=== PATIENT | male | born 1970 | race Caucasian/White ===

== ENCOUNTER 2017-08-25 15:55 | Inpatient (IN) ==
--- NOTE | 2017-08-25 16:06 | Emergency Department Note ---
Disposition Clinical Impression: BARNEY (acute kidney injury) Pneumonia Qualifiers: Pneumonia type: due to unspecified organism Laterality: right Lung location: middle lobe of lung Qualified Code(s): J18.1 - Lobar pneumonia, unspecified organism Disposition: Admitted As Inpatient Condition: Fair General Adult HPI - General Chief complaint: ED Urogenital-Male Stated complaint: dysuria, neck/back pain Nursing Notes Reviewed: Yes Vital Signs Reviewed: Yes - History of Present Illness HPI Narrative: 47-year-old male presents emergency department with concern for not urinating for the last 3 days. Patient states that is ever had issues with this before. Patient denies any history of benign prostatic hypertrophy. Patient denies any abdominal pain. He does report having a few episodes of diarrhea with some nausea. No nausea vomiting today though however. He did vomit 2 days ago and states he hurt his neck. He states that he feels as if he pulled a muscle on the left side of his neck. Patient does report history of chronic kidney disease. States that he has follow-up with nephrology in September. Denies any fevers or chills. Denies any urgency or blood in the urine. Pain Scale: 8 - Related Data Allergies Allergy/AdvReac Type Severity Reaction Status Date / Time No Known Allergies Allergy Verified 08/25/17 16:33 All systems ED: reviewed and negative except as stated. Review of Systems: As Per HPI Constitutional: Denies: fever Gastrointestinal: Reports: nausea, vomiting. Denies: abdominal pain Genitourinary: Reports: frequency (Decreased). Denies: urgency, dysuria, testicular pain Musculoskeletal: Reports: back pain (Chronic), neck pain (Acute) Integumentary: Denies: rash Neurological: Denies: weakness Psychiatric: Reports: depression Physical Exam - General General appearance: alert, in no apparent distress - Head Head exam: atraumatic, normocephalic - Eye Eye exam: Present: EOMI. Absent: scleral icterus - ENT ENT exam: normal exam, normal oropharynx - Neck Neck exam: Present: trachea midline - Chest Chest inspection: Present: normal inspection, symmetric chest wall rise - Respiratory Respiratory exam: Present: normal lung sounds bilaterally. Absent: respiratory distress, wheezes, stridor - Cardiovascular Cardiovascular exam: Present: regular rate, normal rhythm, normal heart sounds - Abdominal Exam Abdominal exam: Present: Non-Tender, distention (Mild). Absent: guarding, rebound, rigidity - Extremities Exam Extremities exam: Present: normal capillary refill - Back Exam Back exam: Present: normal inspection - Neurological Exam Neurological exam: Present: alert, oriented X3 - Psychiatric Psychiatric exam: Present: normal affect, normal mood - Skin Skin exam: Present: warm, dry, intact, normal color Course Vital Signs Temperature 98.8 F 08/25/17 15:56 Pulse Rate 92 08/25/17 15:56 Respiratory Rate 17 08/25/17 15:56 Blood Pressure 102/67 08/25/17 15:56 O2 Sat by Pulse Oximetry 95 08/25/17 15:56 Temperature 97.6 F 08/25/17 20:19 Pulse Rate 79 08/25/17 20:19 Respiratory Rate 17 08/25/17 20:19 Blood Pressure 96/65 08/25/17 20:19 O2 Sat by Pulse Oximetry 96 08/25/17 20:19 Oxygen Delivery Oxygen Delivery Room Air Medical Decision Making - MDM Narrative Medical decision making narrative: 47-year-old male presents emergency department with concern for nausea, vomiting , diarrhea, anuresis over the last 3 days. Renal function revealed a creatinine of 5.76. Obtained a chest x-ray as well as CT scan of abdomen and pelvis. CT scan of abdomen and pelvis revealed a mildly enlarged prostate. However, there was noted opacities in the right middle lobe of the lung concerning for pneumonia. Chest x-ray reveals right basilar opacity. Patient does have a leukocytosis of 19,000. Patient afebrile here. However, with acute kidney injury, leukocytosis, and possible right middle lobe pneumonia, patient qualifies for severe sepsis. We have given patient 3 L of fluid here in the emergency department. We obtained fraction excretion of sodium and this is 0.4%, which would indicate a prerenal etiology to the patient's acute kidney injury. We have given Rocephin and azithromycin as well. Patient was admitted to the hospitalist. Dr. Joy agreed to accept the patient. Patient was a agreeable with plan. Also spoke with Dr. Jacobson who agreed to follow the patient. Abdomen/Pelvis CT 08/25/17 17:08 IMPRESSION: 1. No acute process in the abdomen or pelvis. No renal calculi are visualized. 2. Mildly enlarged prostate. 3. Clustered sub solid nodular opacities in the right middle lobe, with a trace right pleural effusion, concerning for pneumonia. D/ / 08/25/2017 17:48:40 Mina Kidd MD / nava Interpreting Provider: Mina Kidd MD Chest X-Ray 08/25/17 17:09 IMPRESSION: Patchy right basilar opacity which may reflect atelectasis. No overt edema. D/ / Sri Riggs MD / Sri Riggs MD Interpreting Provider: Sri Riggs MD - Lab Data Result diagrams: 08/25/17 16:25 08/25/17 16:25 Lab Results 08/25/17 08/25/17 08/25/17 Range/Units 16:25 16:25 17:11 WBC 19.7 H (4.3-11.1) K/mcL RBC 3.77 L (4.19-5.50) M/mcL Hgb 11.5 L (12.9-16.9) g/dL Hct 33.3 L (37.5-50.1) % MCV 88.3 (83.0-100.0) fL MCH 30.5 (28.0-33.3) pg MCHC 34.5 (31.6-35.5) g/dL RDW 14.2 (11.5-14.5) % Plt Count 249 (140-400) K/mcL MPV 9.5 (9.4-12.4) fL Immature Gran % 2.8 (0-4) % Seg Neutrophils % 62.9 % Lymphocytes % 12.1 % Monocytes % 6.7 % Eosinophils % 15.3 % Basophils % 0.2 % Neutrophils # 12.4 H (1.6-8.9) K/mcL Lymphocytes # 2.4 (0.6-4.6) K/mcL Monocytes # 1.3 (0.0-1.3) K/mcL Eosinophils # 3.0 H (0.0-0.6) K/mcL Basophils # 0.0 (0.0-0.2) K/mcL Platelet Estimate Normal (Normal) Sodium 134 L (136-145) mEq/L Potassium 4.7 (3.5-5.1) mEq/L Chloride 104 (98-107) mEq/L Carbon Dioxide 20 L (23-29) mEq/L BUN 58 H (6-20) mg/dL Creatinine 5.76 H (0.70-1.30) mg/dL Est GFR ( Amer) 13 L (> 60) Est GFR (Non-Af Amer) 11 L (> 60) BUN/Creatinine Ratio 10 (6-26) Glucose 122 H (70-105) mg/dL Calculated Osmolality 295 (280-300) Lactic Acid (0.5-2.2) mmol/L Calcium 9.1 (8.6-10.3) mg/dL Total Bilirubin 0.3 (0.3-1.0) mg/dL AST 8 L (13-39) Units/L ALT 11 (7-52) Units/L Alkaline Phosphatase 92 (34-104) Units/L Troponin I < 0.03 (< 0.04) ng/mL Serum Total Protein 6.9 (6.4-8.9) g/dL Albumin 4.2 (3.5-5.7) g/dL Globulin 2.7 (2.4-3.5) g/dL Albumin/Globulin Ratio 1.6 (1.1-2.2) Lipase 11 (11-82) Units/L Urine Color Yellow (Yellow) Urine Clarity Cloudy A (Clear) Urine pH 5.0 (5.0-8.0) pH Units Ur Specific [place] 1.022 (1.010-1.025) Urine Protein Negative (Neg-Trace) mg/dL Urine Glucose (UA) Normal (Normal) mg/dL Urine Ketones Negative (Negative) mg/dL Urine Blood Small H (Negative) Urine Nitrite Negative (Negative) Urine Bilirubin Small H (Negative) Urine Urobilinogen Normal (Normal) mg/dL Ur Leukocyte Esterase Negative (Negative) Urine Microscopic RBC 0-3 (0-3) per hpf Urine Microscopic WBC 0-3 (0-3) per hpf Ur Squamous Epith Cells Many H (None-Few) per lpf Amorphous Sediment Moderate H (Few) Urine Bacteria None Seen (None-Few) per hpf Hyaline Casts Test Not Performed Ur Culture Indicated? NO (NO) Urine Creatinine mg/dL Urine Sodium mEq/L 08/25/17 08/25/17 Range/Units 17:11 18:11 WBC (4.3-11.1) K/mcL RBC (4.19-5.50) M/mcL Hgb (12.9-16.9) g/dL Hct (37.5-50.1) % MCV (83.0-100.0) fL MCH (28.0-33.3) pg MCHC (31.6-35.5) g/dL RDW (11.5-14.5) % Plt Count (140-400) K/mcL MPV (9.4-12.4) fL Immature Gran % (0-4) % Seg Neutrophils % % Lymphocytes % % Monocytes % % Eosinophils % % Basophils % % Neutrophils # (1.6-8.9) K/mcL Lymphocytes # (0.6-4.6) K/mcL Monocytes # (0.0-1.3) K/mcL Eosinophils # (0.0-0.6) K/mcL Basophils # (0.0-0.2) K/mcL Platelet Estimate (Normal) Sodium (136-145) mEq/L Potassium (3.5-5.1) mEq/L Chloride (98-107) mEq/L Carbon Dioxide (23-29) mEq/L BUN (6-20) mg/dL Creatinine (0.70-1.30) mg/dL Est GFR ( Amer) (> 60) Est GFR (Non-Af Amer) (> 60) BUN/Creatinine Ratio (6-26) Glucose (70-105) mg/dL Calculated Osmolality (280-300) Lactic Acid 1.4 (0.5-2.2) mmol/L Calcium (8.6-10.3) mg/dL Total Bilirubin (0.3-1.0) mg/dL AST (13-39) Units/L ALT (7-52) Units/L Alkaline Phosphatase (34-104) Units/L Troponin I (< 0.04) ng/mL Serum Total Protein (6.4-8.9) g/dL Albumin (3.5-5.7) g/dL Globulin (2.4-3.5) g/dL Albumin/Globulin Ratio (1.1-2.2) Lipase (11-82) Units/L Urine Color (Yellow) Urine Clarity (Clear) Urine pH (5.0-8.0) pH Units Ur Specific [place] (1.010-1.025) Urine Protein (Neg-Trace) mg/dL Urine Glucose (UA) (Normal) mg/dL Urine Ketones (Negative) mg/dL Urine Blood (Negative) Urine Nitrite (Negative) Urine Bilirubin (Negative) Urine Urobilinogen (Normal) mg/dL Ur Leukocyte Esterase (Negative) Urine Microscopic RBC (0-3) per hpf Urine Microscopic WBC (0-3) per hpf Ur Squamous Epith Cells (None-Few) per lpf Amorphous Sediment (Few) Urine Bacteria (None-Few) per hpf Hyaline Casts Ur Culture Indicated? (NO) Urine Creatinine 220 mg/dL Urine Sodium 20.0 mEq/L - EKG Data EKG #1 EKG attestation: Yes I reviewed and interpreted this EKG. EKG results narrative: 17:43 Ventricular rate 70 bpm, KS interval 160 ms, QRS duration 86 ms, QT 360 ms, QTc 392 ms, normal axis. Sinus rhythm with a ventricular rate of 70 bpm. There is no evidence of any ischemic ST changes on this electrocardiogram.
[2017-08-25 16:34] LABS: Basophils % 0.2 %; Eosinophils % 15.3 %; Hematocrit 33.3 % (37.5-50.1); Hemoglobin 11.5 g/dL (12.9-16.9); Immature Granulocytes % 2.8 % (0-4); Lymphocytes # 2.4 K/mcL (0.6-4.6); Lymphocytes % 12.1 %; Mean Corpuscular HGB Conc 34.5 g/dL (31.6-35.5); Mean Corpuscular Hemoglobin 30.5 pg (28.0-33.3); Mean Corpuscular Volume 88.3 fL (83.0-100.0); Mean Platelet Volume 9.5 fL (9.4-12.4); Monocytes # 1.3 K/mcL (0.0-1.3); Monocytes % 6.7 %; Neutrophils # 12.4 K/mcL (1.6-8.9); Platelet Count 249 K/mcL (140-400); Red Blood Count 3.77 M/mcL (4.19-5.50); Red Cell Distribution Width 14.2 % (11.5-14.5); Segmented Neutrophils % 62.9 %
[2017-08-25 16:36] LABS: Platelet Estimate Normal (Normal)
[2017-08-25 16:54] LABS: Alanine Aminotransferase 11 Units/L (7-52); Albumin 4.2 g/dL (3.5-5.7); Albumin/Globulin Ratio 1.6 (1.1-2.2); Alkaline Phosphatase 92 Units/L (34-104); Aspartate Amino Transferase 8 Units/L (13-39); BUN/Creatinine Ratio 10 (6-26); Bilirubin,Total 0.3 mg/dL (0.3-1.0); Blood Urea Nitrogen 58 mg/dL (6-20); Calcium 9.1 mg/dL (8.6-10.3); Carbon Dioxide 20 mEq/L (23-29); Chloride 104 mEq/L (98-107); Globulin 2.7 g/dL (2.4-3.5); Glucose 122 mg/dL (70-105); Osmolality,Calculated 295 (280-300); Potassium 4.7 mEq/L (3.5-5.1); Sodium 134 mEq/L (136-145); Total Protein 6.9 g/dL (6.4-8.9); eGFR For African Americans 13 (> 60); eGFR For Non-African Americans 11 (> 60)
[2017-08-25 17:02] LABS: Lipase 11 Units/L (11-82)
[2017-08-25] MEDS ORDERED: 0.9 % Sodium Chloride 1,000 ML IVC ONE ×3 (17:10→18:00)
[2017-08-25 17:22] LABS: Bilirubin,Urine Small (Negative); Blood,Urine Small (Negative); Clarity,Urine Cloudy (Clear); Color,Urine Yellow (Yellow); Glucose,Urine (UA) Normal (Normal); Ketones,Urine Negative (Negative); Leukocyte Esterase,Urine Negative (Negative); Nitrite,Urine Negative (Negative); Protein,Urine Negative (Neg-Trace); Specific Gravity,Urine 1.022 (1.010-1.025); Urobilinogen,Urine Normal (Normal)
[2017-08-25 17:25] LABS: Bacteria,Urine None Seen per hpf (None-Few); RBC,Urine 0-3 per hpf (0-3); Squamous Epithelial Cell,Urine Many per lpf (None-Few); WBC,Urine 0-3 per hpf (0-3)
[2017-08-25 17:32] LABS: Troponin I < 0.03 ng/mL (< 0.04)
[2017-08-25 17:38] LABS: Amorphous Sediment,Urine Moderate (Few)
--- NOTE | 2017-08-25 17:44 | Emergency Department Note ---
Disposition Clinical Impression: BARNEY (acute kidney injury) Pneumonia Qualifiers: Pneumonia type: due to unspecified organism Laterality: right Lung location: middle lobe of lung Qualified Code(s): J18.1 - Lobar pneumonia, unspecified organism Disposition: Admitted As Inpatient Referrals: Alcon Weber MD [Primary Care Provider] - Time of Disposition: 18:45 General Adult HPI - General Chief complaint: ED Urogenital-Male Stated complaint: dysuria, neck/back pain Time Seen by Provider: 08/25/17 16:06 Source: patient Limitations: no limitations - History of Present Illness Pain Scale: 8 - Related Data Allergies Allergy/AdvReac Type Severity Reaction Status Date / Time No Known Allergies Allergy Verified 08/25/17 16:33 Constitutional: Denies: fever Gastrointestinal: Reports: nausea, vomiting. Denies: abdominal pain Genitourinary: Reports: frequency (Decreased). Denies: urgency, dysuria, testicular pain Musculoskeletal: Reports: back pain (Chronic), neck pain (Acute) Integumentary: Denies: rash Neurological: Denies: weakness Psychiatric: Reports: depression Past Medical History - Past Medical History Medical history: Reports: non-contributory Psychiatric history: Reports: no psych history - Social History Smoking Status: Never smoker Smokeless Tobacco Status: No Alcohol use: Reports: none Drug use: Reports: none Physical Exam - General Limitations: no limitations General appearance: alert, in no apparent distress Course Vital Signs Temperature 98.8 F 08/25/17 15:56 Pulse Rate 92 08/25/17 15:56 Respiratory Rate 17 08/25/17 15:56 Blood Pressure 102/67 08/25/17 15:56 O2 Sat by Pulse Oximetry 95 08/25/17 15:56 Temperature 98.8 F 08/25/17 16:14 Pulse Rate 74 08/25/17 17:39 Respiratory Rate 18 08/25/17 17:39 Blood Pressure 99/60 08/25/17 17:39 O2 Sat by Pulse Oximetry 98 08/25/17 17:39 Oxygen Delivery Oxygen Delivery Room Air Medical Decision Making - Lab Data Result diagrams: 08/25/17 16:25 08/25/17 16:25 Lab Results 08/25/17 08/25/17 08/25/17 Range/Units 16:25 16:25 17:11 WBC 19.7 H (4.3-11.1) K/mcL RBC 3.77 L (4.19-5.50) M/mcL Hgb 11.5 L (12.9-16.9) g/dL Hct 33.3 L (37.5-50.1) % MCV 88.3 (83.0-100.0) fL MCH 30.5 (28.0-33.3) pg MCHC 34.5 (31.6-35.5) g/dL RDW 14.2 (11.5-14.5) % Plt Count 249 (140-400) K/mcL MPV 9.5 (9.4-12.4) fL Immature Gran % 2.8 (0-4) % Seg Neutrophils % 62.9 % Lymphocytes % 12.1 % Monocytes % 6.7 % Eosinophils % 15.3 % Basophils % 0.2 % Neutrophils # 12.4 H (1.6-8.9) K/mcL Lymphocytes # 2.4 (0.6-4.6) K/mcL Monocytes # 1.3 (0.0-1.3) K/mcL Eosinophils # 3.0 H (0.0-0.6) K/mcL Basophils # 0.0 (0.0-0.2) K/mcL Platelet Estimate Normal (Normal) Sodium 134 L (136-145) mEq/L Potassium 4.7 (3.5-5.1) mEq/L Chloride 104 (98-107) mEq/L Carbon Dioxide 20 L (23-29) mEq/L BUN 58 H (6-20) mg/dL Creatinine 5.76 H (0.70-1.30) mg/dL Est GFR ( Amer) 13 L (> 60) Est GFR (Non-Af Amer) 11 L (> 60) BUN/Creatinine Ratio 10 (6-26) Glucose 122 H (70-105) mg/dL Calculated Osmolality 295 (280-300) Lactic Acid (0.5-2.2) mmol/L Calcium 9.1 (8.6-10.3) mg/dL Total Bilirubin 0.3 (0.3-1.0) mg/dL AST 8 L (13-39) Units/L ALT 11 (7-52) Units/L Alkaline Phosphatase 92 (34-104) Units/L Troponin I < 0.03 (< 0.04) ng/mL Serum Total Protein 6.9 (6.4-8.9) g/dL Albumin 4.2 (3.5-5.7) g/dL Globulin 2.7 (2.4-3.5) g/dL Albumin/Globulin Ratio 1.6 (1.1-2.2) Lipase 11 (11-82) Units/L Urine Color Yellow (Yellow) Urine Clarity Cloudy A (Clear) Urine pH 5.0 (5.0-8.0) pH Units Ur Specific [place] 1.022 (1.010-1.025) Urine Protein Negative (Neg-Trace) mg/dL Urine Glucose (UA) Normal (Normal) mg/dL Urine Ketones Negative (Negative) mg/dL Urine Blood Small H (Negative) Urine Nitrite Negative (Negative) Urine Bilirubin Small H (Negative) Urine Urobilinogen Normal (Normal) mg/dL Ur Leukocyte Esterase Negative (Negative) Urine Microscopic RBC 0-3 (0-3) per hpf Urine Microscopic WBC 0-3 (0-3) per hpf Ur Squamous Epith Cells Many H (None-Few) per lpf Amorphous Sediment Moderate H (Few) Urine Bacteria None Seen (None-Few) per hpf Hyaline Casts Test Not Performed Ur Culture Indicated? NO (NO) Urine Creatinine mg/dL Urine Sodium mEq/L 08/25/17 08/25/17 Range/Units 17:11 18:11 WBC (4.3-11.1) K/mcL RBC (4.19-5.50) M/mcL Hgb (12.9-16.9) g/dL Hct (37.5-50.1) % MCV (83.0-100.0) fL MCH (28.0-33.3) pg MCHC (31.6-35.5) g/dL RDW (11.5-14.5) % Plt Count (140-400) K/mcL MPV (9.4-12.4) fL Immature Gran % (0-4) % Seg Neutrophils % % Lymphocytes % % Monocytes % % Eosinophils % % Basophils % % Neutrophils # (1.6-8.9) K/mcL Lymphocytes # (0.6-4.6) K/mcL Monocytes # (0.0-1.3) K/mcL Eosinophils # (0.0-0.6) K/mcL Basophils # (0.0-0.2) K/mcL Platelet Estimate (Normal) Sodium (136-145) mEq/L Potassium (3.5-5.1) mEq/L Chloride (98-107) mEq/L Carbon Dioxide (23-29) mEq/L BUN (6-20) mg/dL Creatinine (0.70-1.30) mg/dL Est GFR ( Amer) (> 60) Est GFR (Non-Af Amer) (> 60) BUN/Creatinine Ratio (6-26) Glucose (70-105) mg/dL Calculated Osmolality (280-300) Lactic Acid 1.4 (0.5-2.2) mmol/L Calcium (8.6-10.3) mg/dL Total Bilirubin (0.3-1.0) mg/dL AST (13-39) Units/L ALT (7-52) Units/L Alkaline Phosphatase (34-104) Units/L Troponin I (< 0.04) ng/mL Serum Total Protein (6.4-8.9) g/dL Albumin (3.5-5.7) g/dL Globulin (2.4-3.5) g/dL Albumin/Globulin Ratio (1.1-2.2) Lipase (11-82) Units/L Urine Color (Yellow) Urine Clarity (Clear) Urine pH (5.0-8.0) pH Units Ur Specific [place] (1.010-1.025) Urine Protein (Neg-Trace) mg/dL Urine Glucose (UA) (Normal) mg/dL Urine Ketones (Negative) mg/dL Urine Blood (Negative) Urine Nitrite (Negative) Urine Bilirubin (Negative) Urine Urobilinogen (Normal) mg/dL Ur Leukocyte Esterase (Negative) Urine Microscopic RBC (0-3) per hpf Urine Microscopic WBC (0-3) per hpf Ur Squamous Epith Cells (None-Few) per lpf Amorphous Sediment (Few) Urine Bacteria (None-Few) per hpf Hyaline Casts Ur Culture Indicated? (NO) Urine Creatinine 220 mg/dL Urine Sodium 20.0 mEq/L Critical Care Time Critical Care Time: Yes Total Critical Care Time: 40 Attestation: Critical care performed: Time is exclusive of separately billable procedures. Time includes: direct patient care, patient reassessment, coordination of patient care, interpretation of data (laboratory data, radiology data, and respiratory data), review of patient's medical records, medical consultation and documentation of patient care. Procedures included in critical care time: Procedures excluded from critical care time: Attestation Statement - Attestation Attestation: I examined this patient and my medical decision-making was reviewed with the Resident Physician. I agree with the documented findings, disposition and treatment plan as described except to the extent set forth below. Patient presents to the ED with a chief complaint of trouble urinating. Onset about 3 days ago. Patient states he recently had a virus. Vomiting and diarrhea. That resolved on Saturday. On examination he is in no acute distress. Abdomen. Plan. The patient has a creatinine of 5. This is significantly elevated from his baseline. Likely prerenal. We will check CT to rule out an obstructive process. IV hydration labs admission. We will consult with his legal project manager Dr. Silverman. Patient with a pneumonia. Renal failure likely prerenal. He has had IV hydration. We consult with nephrology. IV antibodies given. Patient admitted to medicine. Abdomen/Pelvis CT 08/25/17 17:08 IMPRESSION: 1. No acute process in the abdomen or pelvis. No renal calculi are visualized. 2. Mildly enlarged prostate. 3. Clustered sub solid nodular opacities in the right middle lobe, with a trace right pleural effusion, concerning for pneumonia. D/ / 08/25/2017 17:48:40 Mina Kidd MD / nava Interpreting Provider: Mina Kidd MD Chest X-Ray 08/25/17 17:09 IMPRESSION: Patchy right basilar opacity which may reflect atelectasis. No overt edema. D/ / Sri Riggs MD / Sri Riggs MD Interpreting Provider: Sri Riggs MD
[2017-08-25] MEDS ORDERED: Levofloxacin 750 MG/150 ML 750 MG/150 ML BAG IVPB ONE (18:00)
[2017-08-25] MEDS ORDERED: cefTRIAXone 1,000 MG in Water for inj. (sterile) 20 ML 10 ML IVP ONE (18:01)
[2017-08-25] MEDS ORDERED: Azithromycin 500 MG in D5% in Water 250 ML IVPB ONE (18:02)
[2017-08-25] MEDS ORDERED: Naloxone 0.4 MG/ML INJ IVP PRN (19:12)
[2017-08-25] MEDS ORDERED: *HR* Dextrose 50 % in Water (Syg) 50 ML SYRINGE IVP PRN (19:25)
[2017-08-25] MEDS ORDERED: Dextrose Gel 15 GM/37.5 ML TUBE PO PRN ×2 (19:25)
[2017-08-25] MEDS ORDERED: D5% in Water 1,000 ML IVC PRN (19:25)
--- NOTE | 2017-08-25 19:25 | Internal Med History&Physical ---
Date of Encounter: 08/25/17 Time of Encounter: 19:25 Internal Medicine - H&P: HPI Chief complaint: no urine for 3 days History of present illness: Mr. Christina is a 47 year old male who presents with complaint of no urine for 3 days. Found to be in acute kidney injury. He reports no urine for 3 days. Reported persistent nausea vomiting up to 7 times a day associated with watery diarrhea up to 4-5 times a day in the last 4 days Reports subjective fevers. Some shortness of breath. Associated with dizziness. Tina as if he had a stomach virus. Had been exhausted for the last 2 -3 weeks. At baseline he takes lisinopril, diuretics and I suspect that his present illness is secondary to prerenal on top of acute syndrome which in light of GI symptoms may either represents a viral gastritis or atypical pneumonia like legionella. EKG personally reviewed rate of 78, normal sinus rhythm CT/CT abd pelvis wo no iv no oral IMPRESSION: 1. No acute process in the abdomen or pelvis. No renal calculi are visualized. 2. Mildly enlarged prostate. 3. Clustered sub solid nodular opacities in the right middle lobe, with a trace right pleural effusion, concerning for pneumonia. XR/XR chest 1V portable IMPRESSION: Patchy right basilar opacity which may reflect atelectasis. No overt edema. Past Med Surg Social Fam HX - Past Medical History Medical history: non-contributory Psychiatric history: no psych history - Past Surgical History Surgical History: no surgical history, non-contributory - Social History Smoking Status: Never smoker Smokeless Tobacco Status: No Alcohol use: none Drug use: none Internal Medicine - H&P: Meds 3 Allergy/AdvReac Type Severity Reaction Status Date / Time No Known Allergies Allergy Verified 08/25/17 16:33 All Systems PM: A 10-system review of systems was performed and is negative for pertinent findings except as documented above in the HPI. Review of systems: ROS 14 point review of systems reviewed as best as possible given presentation. Pertinent positive or negative as per HPI or otherwise reviewed as negative - Constitutional Vitals: Temp Pulse Resp BP Pulse Ox 98.2 F 74 18 117/71 98 08/25/17 19:00 08/25/17 17:39 08/25/17 19:00 08/25/17 19:00 08/25/17 17:39 Exam: General - AAO x 3 Psych - Appropriate affect/speech. No agitation Eyes - DEVEN. Eye lids intact. No scleral icterus Neuro - No gross peripheral or central neuro deficits on inspection Heart - Sinus. RRR. S1 and S2 present. No added HS/murmurs appreciated. No elevated JVD appreciated. Lung - Adequate air entry b/l, bibasal crackles, no wheeze appreciated GI - Soft, non-tender. No hepatosplenomegaly/ascites. BS+ - No CVA/suprapubic tenderness or palpable bladder distension Skin - Intact. No rash/petechiae/ecchymosis. Warm extremities Internal Med - H&P Results - Labs CBC & Chem 7: 08/25/17 16:25 08/25/17 16:25 - Assessment and plan (1) BARNEY (acute kidney injury) Current Visit: Yes Status: Acute Assessment and plan: suspect pre-renal start IVF trend Cr Hold lasix, HCTZ, lisinopril, gabapentin, clonidine (to avoid drop in BP - may restart clonidine if BP high) (2) Pneumonia Current Visit: Yes Status: Acute Assessment and plan: empiric rocephin and azithro IV send serologies, to include legionella Qualifiers: Pneumonia type: due to unspecified organism Laterality: right Lung location: middle lobe of lung Qualified Code(s): J18.1 - Lobar pneumonia, unspecified organism (3) HTN (hypertension) Current Visit: Yes Status: Acute Assessment and plan: hold clonidine, lisinopril for now may restart clonidine if BP high over 24-48 hours Qualifiers: Hypertension type: essential hypertension Qualified Code(s): I10 - Essential (primary) hypertension (4) DMII (diabetes mellitus, type 2) Current Visit: Yes Status: Acute Assessment and plan: ISS for now hold metformin Qualifiers: Qualified Code(s): E11.9 - Type 2 diabetes mellitus without complications (5) MARGA (obstructive sleep apnea) Current Visit: Yes Status: Acute Assessment and plan: CPAP qHS (6) Depression Current Visit: Yes Status: Acute Assessment and plan: continue medicine Qualifiers: Qualified Code(s): F32.9 - Major depressive disorder, single episode, unspecified - Time Spent With Patient Total time spent is greater than 50% in coordination of care (as documented) at patient's floor/unit and/or counseling patient:
--- NOTE | 2017-08-25 20:03 | Emergency Department Note ---
Disposition Clinical Impression: BARNEY (acute kidney injury) Pneumonia Qualifiers: Pneumonia type: due to unspecified organism Laterality: right Lung location: middle lobe of lung Qualified Code(s): J18.1 - Lobar pneumonia, unspecified organism Disposition: Admitted As Inpatient Condition: Fair General Adult HPI - General Chief complaint: ED Urogenital-Male Stated complaint: dysuria, neck/back pain Time Seen by Provider: 08/25/17 16:06 Source: patient Limitations: no limitations - History of Present Illness HPI Narrative: This documentation only supports the OMT treatment procedure. Please see the other providers documentation for complete history and physical. Pain Scale: 0 - Related Data Allergies Allergy/AdvReac Type Severity Reaction Status Date / Time No Known Allergies Allergy Verified 08/25/17 16:33 Constitutional: Denies: fever Gastrointestinal: Reports: nausea, vomiting. Denies: abdominal pain Genitourinary: Reports: frequency (Decreased). Denies: urgency, dysuria, testicular pain Musculoskeletal: Reports: back pain (Chronic), neck pain (Acute) Integumentary: Denies: rash Neurological: Denies: weakness Psychiatric: Reports: depression Past Medical History - Past Medical History Medical history: Reports: non-contributory Surgical history: Reports: no surgical history, non-contributory Psychiatric history: Reports: no psych history - Social History Smoking Status: Never smoker Smokeless Tobacco Status: No Alcohol use: Reports: none Drug use: Reports: none Physical Exam - General Limitations: no limitations General appearance: alert, in no apparent distress Course Course Narrative: Procedure: OMT, myofascial and muscle energy of the paracervical musculature. Indication: Left paracervical tenderness. With verbalize consent the patient underwent myofascial as well as muscle energy of the paracervical musculature. Patient was lying supine with head of bed elevated to approximately 30 degrees. With the patient having restricted range of motion with rotation of the left. Soft tissue myofascial of the left paracervical muscles. Tissue texture changes noted. Patient had relief of the soft tissues. Muscle energy also was performed with increasing passive range of motion. Patient noted severe slight improvement as well as objectively increased range of motion. Vital Signs Temperature 98.8 F 08/25/17 15:56 Pulse Rate 92 08/25/17 15:56 Respiratory Rate 17 08/25/17 15:56 Blood Pressure 102/67 08/25/17 15:56 O2 Sat by Pulse Oximetry 95 08/25/17 15:56 Temperature 98.2 F 08/25/17 19:00 Pulse Rate 74 08/25/17 17:39 Respiratory Rate 18 08/25/17 19:00 Blood Pressure 117/71 08/25/17 19:00 O2 Sat by Pulse Oximetry 98 08/25/17 17:39 Oxygen Delivery Oxygen Delivery Room Air Medical Decision Making - Lab Data Result diagrams: 08/25/17 16:25 08/25/17 16:25 Lab Results 08/25/17 08/25/17 08/25/17 Range/Units 16:25 16:25 17:11 WBC 19.7 H (4.3-11.1) K/mcL RBC 3.77 L (4.19-5.50) M/mcL Hgb 11.5 L (12.9-16.9) g/dL Hct 33.3 L (37.5-50.1) % MCV 88.3 (83.0-100.0) fL MCH 30.5 (28.0-33.3) pg MCHC 34.5 (31.6-35.5) g/dL RDW 14.2 (11.5-14.5) % Plt Count 249 (140-400) K/mcL MPV 9.5 (9.4-12.4) fL Immature Gran % 2.8 (0-4) % Seg Neutrophils % 62.9 % Lymphocytes % 12.1 % Monocytes % 6.7 % Eosinophils % 15.3 % Basophils % 0.2 % Neutrophils # 12.4 H (1.6-8.9) K/mcL Lymphocytes # 2.4 (0.6-4.6) K/mcL Monocytes # 1.3 (0.0-1.3) K/mcL Eosinophils # 3.0 H (0.0-0.6) K/mcL Basophils # 0.0 (0.0-0.2) K/mcL Platelet Estimate Normal (Normal) Sodium 134 L (136-145) mEq/L Potassium 4.7 (3.5-5.1) mEq/L Chloride 104 (98-107) mEq/L Carbon Dioxide 20 L (23-29) mEq/L BUN 58 H (6-20) mg/dL Creatinine 5.76 H (0.70-1.30) mg/dL Est GFR ( Amer) 13 L (> 60) Est GFR (Non-Af Amer) 11 L (> 60) BUN/Creatinine Ratio 10 (6-26) Glucose 122 H (70-105) mg/dL Calculated Osmolality 295 (280-300) Lactic Acid (0.5-2.2) mmol/L Calcium 9.1 (8.6-10.3) mg/dL Total Bilirubin 0.3 (0.3-1.0) mg/dL AST 8 L (13-39) Units/L ALT 11 (7-52) Units/L Alkaline Phosphatase 92 (34-104) Units/L Troponin I < 0.03 (< 0.04) ng/mL Serum Total Protein 6.9 (6.4-8.9) g/dL Albumin 4.2 (3.5-5.7) g/dL Globulin 2.7 (2.4-3.5) g/dL Albumin/Globulin Ratio 1.6 (1.1-2.2) Lipase 11 (11-82) Units/L Urine Color Yellow (Yellow) Urine Clarity Cloudy A (Clear) Urine pH 5.0 (5.0-8.0) pH Units Ur Specific [place] 1.022 (1.010-1.025) Urine Protein Negative (Neg-Trace) mg/dL Urine Glucose (UA) Normal (Normal) mg/dL Urine Ketones Negative (Negative) mg/dL Urine Blood Small H (Negative) Urine Nitrite Negative (Negative) Urine Bilirubin Small H (Negative) Urine Urobilinogen Normal (Normal) mg/dL Ur Leukocyte Esterase Negative (Negative) Urine Microscopic RBC 0-3 (0-3) per hpf Urine Microscopic WBC 0-3 (0-3) per hpf Ur Squamous Epith Cells Many H (None-Few) per lpf Amorphous Sediment Moderate H (Few) Urine Bacteria None Seen (None-Few) per hpf Hyaline Casts Test Not Performed Ur Culture Indicated? NO (NO) Urine Creatinine mg/dL Urine Sodium mEq/L 18 08/25/17 Range/Units 17:11 18:11 WBC (4.3-11.1) K/mcL RBC (4.19-5.50) M/mcL Hgb (12.9-16.9) g/dL Hct (37.5-50.1) % MCV (83.0-100.0) fL MCH (28.0-33.3) pg MCHC (31.6-35.5) g/dL RDW (11.5-14.5) % Plt Count (140-400) K/mcL MPV (9.4-12.4) fL Immature Gran % (0-4) % Seg Neutrophils % % Lymphocytes % % Monocytes % % Eosinophils % % Basophils % % Neutrophils # (1.6-8.9) K/mcL Lymphocytes # (0.6-4.6) K/mcL Monocytes # (0.0-1.3) K/mcL Eosinophils # (0.0-0.6) K/mcL Basophils # (0.0-0.2) K/mcL Platelet Estimate (Normal) Sodium (136-145) mEq/L Potassium (3.5-5.1) mEq/L Chloride (98-107) mEq/L Carbon Dioxide (23-29) mEq/L BUN (6-20) mg/dL Creatinine (0.70-1.30) mg/dL Est GFR ( Amer) (> 60) Est GFR (Non-Af Amer) (> 60) BUN/Creatinine Ratio (6-26) Glucose (70-105) mg/dL Calculated Osmolality (280-300) Lactic Acid 1.4 (0.5-2.2) mmol/L Calcium (8.6-10.3) mg/dL Total Bilirubin (0.3-1.0) mg/dL AST (13-39) Units/L ALT (7-52) Units/L Alkaline Phosphatase (34-104) Units/L Troponin I (< 0.04) ng/mL Serum Total Protein (6.4-8.9) g/dL Albumin (3.5-5.7) g/dL Globulin (2.4-3.5) g/dL Albumin/Globulin Ratio (1.1-2.2) Lipase (11-82) Units/L Urine Color (Yellow) Urine Clarity (Clear) Urine pH (5.0-8.0) pH Units Ur Specific [place] (1.010-1.025) Urine Protein (Neg-Trace) mg/dL Urine Glucose (UA) (Normal) mg/dL Urine Ketones (Negative) mg/dL Urine Blood (Negative) Urine Nitrite (Negative) Urine Bilirubin (Negative) Urine Urobilinogen (Normal) mg/dL Ur Leukocyte Esterase (Negative) Urine Microscopic RBC (0-3) per hpf Urine Microscopic WBC (0-3) per hpf Ur Squamous Epith Cells (None-Few) per lpf Amorphous Sediment (Few) Urine Bacteria (None-Few) per hpf Hyaline Casts Ur Culture Indicated? (NO) Urine Creatinine 220 mg/dL Urine Sodium 20.0 mEq/L
[2017-08-25] MEDS: *HR* HYDROcodone/Acet 5/325 mg TABLET PO PRN (22:03)
[2017-08-25] MEDS: 0.9 % Sodium Chloride 1,000 ML IVC SCH (22:03)
[2017-08-25] MEDS: ALPRAZolam 1 MG TABLET PO SCH (22:03)
[2017-08-25] MEDS: Insulin LISPRO 300 UNITS/3 ML VIAL SQ SCH (22:04)
[2017-08-26] MEDS: *HR* Heparin 5,000 UNIT/ML VIAL SQ SCH ×2 (05:17→17:12)
[2017-08-26 05:22] LABS: Basophils # 0.1 K/mcL (0.0-0.2); Basophils % 0.3 %; Eosinophils # 3.8 K/mcL (0.0-0.6); Eosinophils % 22.2 %; Hematocrit 31.3 % (37.5-50.1); Hemoglobin 10.7 g/dL (12.9-16.9); Immature Granulocytes % 3.3 % (0-4); Lymphocytes # 2.3 K/mcL (0.6-4.6); Lymphocytes % 13.5 %; Mean Corpuscular HGB Conc 34.2 g/dL (31.6-35.5); Mean Corpuscular Hemoglobin 30.4 pg (28.0-33.3); Mean Corpuscular Volume 88.9 fL (83.0-100.0); Mean Platelet Volume 9.6 fL (9.4-12.4); Monocytes # 1.5 K/mcL (0.0-1.3); Monocytes % 8.7 %; Platelet Count 213 K/mcL (140-400); Red Blood Count 3.52 M/mcL (4.19-5.50); Red Cell Distribution Width 14.3 % (11.5-14.5)
[2017-08-26 05:39] LABS: Calcium 8.1 mg/dL (8.6-10.3)
[2017-08-26 05:46] LABS: Platelet Estimate Normal (Normal)
[2017-08-26] MEDS: Insulin LISPRO 300 UNITS/3 ML VIAL SQ SCH ×4 (08:09→21:45)
[2017-08-26] MEDS: ALPRAZolam 1 MG TABLET PO SCH ×3 (08:10→21:41)
[2017-08-26] MEDS: cefTRIAXone 2,000 MG in Water for inj. (sterile) 20 ML 20 ML IVP SCH (08:11)
[2017-08-26] MEDS: Azithromycin 500 MG in D5% in Water 250 ML IVPB SCH (08:11)
[2017-08-26] MEDS ORDERED: Metoprolol XL (24 HR) Succ 50 MG TAB.ER.24H PO SCH (09:00)
[2017-08-26] MEDS: *HR* HYDROcodone/Acet 5/325 mg TABLET PO PRN ×2 (10:00→21:42)
--- NOTE | 2017-08-26 10:13 | Electrocardiograph Report ---
[address] [address] Test Date: 2017-08-25 Pat Name: Yasir Christina Department: 103 Room: 2A Gender: M Video Camera Operator: EKP : 1970 Requested By: Korey Lockwood Order Number: [id number] Reading MD: Anjel Thompson Measurements Intervals [place] Rate: 78 P: 11 NV: 160 QRS: 45 QRSD: 86 T: 4 QT: 360 QTc: 393 Interpretive Statements SINUS RHYTHM Electronically Signed On 08-26-2017 10:11:47 EDT by Anjel Thompson
--- NOTE | 2017-08-26 11:09 | Nephrology Consult Note ---
Date of Encounter: 08/26/17 Time of Encounter: 10:15 Assessment and Plan (1) BARNEY (acute kidney injury) Current Visit: Yes Status: Acute BARNEY in setting of sepsis/PNA, diuretics, poor oral intake and GI losses superimposed on CKD, baseline creat 1.4-1.7. Most likely in setting of HTN, diabetes, past chronic NSAID use and diuretics contributing. Continue IV fluids. Start renal workup. Avoid nephrotoxins. Accurate I&O's. Will continue to monitor. History of Present Illness - Reason for Consult Acute Kidney Injury - History of Present Illness Mr. Christina is a 47 year old male who presented to ER yesterday with not urinating for 3 days, denied difficulty, states had no need to urinate. accompanied by vomiting and diarrhea since last Saturday. He admitted feeling chilled but not having fever. He states he had been short of breath in general but denied cough or productive sputum. He states he continued his Lisinopril/ HCTZ and Furosemide whch have been stopped. Other PMH-hypertenion, MARGA with CPAP , diabetes, hyperlipidemia, and renal disease. Initial labs creat 5.76, K 4.7, leukocytosis 19,000. CXR-right basilar opacity. CT abdomen/pelvis w/o contrast- mild enlarged prostate. 3L IV fluids in ER. Currently 0.9NS at 100cc/hr. Hypotensive since admission. SBP 90-102. Documented urine output 425cc. Renal fct improving, creat 4.21, K 4.0. States has known of renal insufficiency for past three months, has an upcoming appointment with our office for workup at the end of September. Prior labs indicate baseline creat 1.4-1.7 from 2016 to June 2017. Hypertension for 20-30 years, poorly controlled until past two years. Used to follow with Dr. Silverman for HTN and then referred to [facility] for continued poor control. He states he now follows with Director Of Undergraduate Admissions for HTN at [facility]. Has used CPAP for MARGA for past ten years and is compliant with CPAP and medication. Recently diagnosed with diabetes in past 6 months and is under good control with medication. He does admit chronic NSAID use; Meloxicam daily for past year and was told to stop taking approximately three months ago by PCP due to note of renal insufficiency. He thinks he was told he had proteinuria in past. Denies hematuria. Denies renal stones. Admits mild chronic LE swelling. Prior to current admission, denies difficulty in emptying bladder. Past Med Surg Social Fam HX - Past Medical History Medical history: non-contributory Psychiatric history: no psych history - Past Surgical History Surgical History: no surgical history, non-contributory - Social History Smoking Status: Never smoker Smokeless Tobacco Status: No Alcohol use: none Drug use: none Medications and Allergies ALPRAZolam [Xanax 1 MG Tablet] 1 mg PO TID 08/26/17 [History] Atorvastatin Calcium [Lipitor] 20 mg PO HS 08/26/17 [History] Baclofen [Lioresal] 10 mg PO Q8H 08/26/17 [History] Fluticasone/Vilanterol [Breo Ellipta 200-25 Mcg INH] 1 puff IH DAILY 08/26/17 [ History] Furosemide [Lasix] 40 mg PO DAILY 08/26/17 [History] Gabapentin [Neurontin] 600 mg PO TID 08/26/17 [History] HYDROcodone/Acet 5/325 mg [[place] 5-325 mg] 1 tab PO BID PRN 08/26/17 [History] Lisinopril/Hydrochlorothiazide [Zestoretic 20-25 mg Tablet] 1 tab PO DAILY 08/26 [History] Metformin HCl [Metformin HCl] 1,000 mg PO BID 08/26/17 [History] Metoprolol Succinate [Toprol Xl] 100 mg PO DAILY 08/26/17 [History] Omeprazole [PriLOSEC] 20 mg PO DAILY 08/26/17 [History] Potassium Chloride [Klor-Con 10] 10 meq PO DAILY 08/26/17 [History] Zolpidem [Ambien] 10 mg PO HS 08/26/17 [History] cloNIDine HCl [Clonidine HCl] 0.2 mg PO BID 08/26/17 [History] fluvoxaMINE [Luvox] 100 mg PO TID 08/26/17 [History] risperiDONE [Risperdal] 2 mg PO HS 08/26/17 [History] traZODone [TraZODone] 50 mg PO TID 08/26/17 [History] 3 Allergy/AdvReac Type Severity Reaction Status Date / Time No Known Allergies Allergy Verified 08/25/17 16:33 Review of Systems All Systems: reviewed and no additional remarkable complaints except as stated Exam - Vital Signs Vital signs: Initial Vital Signs Temp Pulse Resp BP Pulse Ox 98.8 F 92 17 102/67 95 08/25/17 15:56 08/25/17 15:56 08/25/17 15:56 08/25/17 15:56 08/25/17 15:56 Vital Signs - Last 8 Hours Temp Pulse Resp BP Pulse Ox 08/26/17 07:52 97.3 F L 76 18 105/70 95 08/26/17 04:35 97.6 F 70 10 102/66 98 Intake and Output 08/25/17 08/26/17 08/26/17 23:59 07:59 15:59 Intake Total 535 / 2270 810 / 810 240 / 240 Output Total 425 / 425 50 / 50 Balance 110 / 1845 760 / 760 240 / 240 Intake: IV Fluids 525 / 1250 0.9 % Sodium Chloride 1,000 ML 400 / 1000 @ Wide Open IVC .Q0M ONE Rx#: [id number] Zithromax 500 mg In Dextrose 5% 125 / 250 250 ML @ 252 mls/hr IVPB ONCE ONE Rx#:[id number] Oral 800 / 800 240 / 240 Other Output: Urine 425 / 425 50 / 50 Other: Meal Breakfast Percent of Meal Consumed 100% Stool Consistency loose liquid # Bowel Movements 1 Weight 108.862 kg 108.9 kg Blood Glucose* 99 Patient Weight 08/26/17 23:59 Weight 108.9 kg - General Appearance General appearance: well-developed, well-nourished, appears started age, obese EENT: mucous membranes moist Neck: no JVD Respiratory: rhonchi Cardiology: no edema, regular rate, regular rhythm Gastrointestinal: normoactive bowel sounds, no tenderness Integumentary: warm and dry Neurologic: alert and oriented x3 Results - Lab Results 08/26/17 05:09 08/26/17 05:09 Most recent lab results Calcium 8.1 mg/dL (8.6-10.3) L 08/26/17 05:09 Urine Creatinine 220 mg/dL 08/25/17 17:11 Urine Sodium 20.0 mEq/L 08/25/17 17:11 Consult Discharge Plan - Plan Referrals: Alcon Weber MD [Primary Care Provider] -
--- NOTE | 2017-08-26 14:57 | Internal Med Progress Note ---
Date of Encounter: 08/26/17 Time of Encounter: 14:55 - Assessment and plan (1) BARNEY (acute kidney injury) Current Visit: Yes Status: Acute Assessment and plan: Most likely prerenal due to volume loss secondary to an acute gastroenteritis and also being on diuretic. Started Levaquin and Flagyl for gastroenteritis in order diarrhea panel. Continue IV fluid with a strict I&O's. Trending down creatinine level. Hold diuretics. Avoid nephrotoxic drug. Construction Site Manager on board. (2) Acute gastroenteritis Current Visit: Yes Status: Acute Assessment and plan: Most likely contributing AK I due to volume loss. GI panel ordered. Will keep patient nothing by mouth for now as taking anything orally making diarrhea worse. Normal saline 125 in all per hour with a strict I&O's. Will adjust the rate as needed. PPI and lactobacillus (3) Pneumonia Current Visit: Yes Status: Acute Assessment and plan: Review of the chest x-ray. Rocephin and Zithromax was given in the ER but it was discontinued. Levaquin was restarted to cover both gastroenteritis and pneumonia. Spirometry. Qualifiers: Pneumonia type: due to unspecified organism Laterality: right Lung location: middle lobe of lung Qualified Code(s): J18.1 - Lobar pneumonia, unspecified organism (4) HTN (hypertension) Current Visit: Yes Status: Acute Assessment and plan: hold Lasix and this no problem. Resumed clonidine . Hydralazine as needed. Close monitoring of blood pressure. Qualifiers: Hypertension type: essential hypertension Qualified Code(s): I10 - Essential (primary) hypertension (5) Depression Current Visit: Yes Status: Acute Assessment and plan: continue medicine. Is stable. Qualifiers: Qualified Code(s): F32.9 - Major depressive disorder, single episode, unspecified (6) MARGA (obstructive sleep apnea) Current Visit: Yes Status: Acute Assessment and plan: CPAP to be continued (7) DMII (diabetes mellitus, type 2) Current Visit: Yes Status: Acute Assessment and plan: Accu-Chek, SSI coverage and hold metformin Qualifiers: Diabetes mellitus longterm insulin use: without longterm use Diabetes mellitus complication status: without complication Qualified Code(s): E11.9 - Type 2 diabetes mellitus without complications - Time Spent With Patient Total time spent is greater than 50% in coordination of care (as documented) at patient's floor/unit and/or counseling patient: 25 - 35 minutes - Subjective Interval history: Still complaining of frequent diarrhea especially when he take anything oral even liquid, nausea, abdominal pain or slight better. Making good urine output and lightening up. Patient denies dizziness, headache, vomiting, chest pain, shortness of breath - Constitutional Vitals: Temp Pulse Resp BP Pulse Ox 98.2 F 84 18 108/72 94 08/26/17 11:20 08/26/17 11:20 08/26/17 11:20 08/26/17 11:20 08/26/17 11:20 Exam: General appearance: No acute distress, A&O X 3 Head exam: Atraumatic Eye exam: EOMI, PERRLA ENT exam: Moist oral mucosa Neck nontender, supple Respiratory exam: Clear to auscultation bilaterally Cardiovascular exam: Regular rate and rhythm, no systolic murmur Abdominal exam: Soft, mild diffuse abdomen tenderness, nondistended, positive bowel sounds, no CVA tenderness Extremities exam: No calf tenderness, no pedal edema Present: Skin-no rash, warm, dry, intact Neurological exam: Alert, awake, oriented 3, CN II-XII intact, no focal deficits. No facial droop. Normal speech. Normal gait. Internal Medicine: Result - Labs CBC & Chem 7: 08/26/17 05:09 08/26/17 05:09 Labs: Short CBC 08/26/17 Range/Units 05:09 WBC 17.3 H (4.3-11.1) K/mcL Hgb 10.7 L (12.9-16.9) g/dL Hct 31.3 L (37.5-50.1) % Plt Count 213 (140-400) K/mcL Neutrophils # 9.0 H (1.6-8.9) K/mcL BMP 08/26/17 05:09 Sodium 139 Potassium 4.0 Chloride 110 H Carbon Dioxide 22 L BUN 54 H Creatinine 4.21 H Glucose 95 Calcium 8.1 L Consult Discharge Plan - Plan Referrals: Alcon Weber MD [Primary Care Provider] -
[2017-08-26] MEDS: Baclofen 10 MG TABLET PO SCH ×2 (16:00→23:00)
[2017-08-26 19:51] LABS: Creatinine,Urine 54 mg/dL; Microalbum/Creatinine Ratio,Ur 19 mcg/mg (Less than 30); Microalbumin,Urine 10 mg/L
[2017-08-26] MEDS: cloNIDine HCl 0.1 MG TABLET PO SCH (21:40)
[2017-08-26] MEDS: Lactobacillus 1 EACH CAP.SPRINK PO SCH (21:41)
[2017-08-26] MEDS: risperiDONE 1 MG TABLET PO SCH (21:41)
[2017-08-26] MEDS: 0.9 % Sodium Chloride 1,000 ML IVC SCH ×2 (21:50→23:01)
[2017-08-27 04:46] LABS: Adenovirus F 40/41 PCR Not detected (Not detect); Astrovirus PCR Not detected (Not detect); C.difficile Toxin A/B by PCR Not detected (Not detect); Campylobacter by PCR Not detected (Not detect); Cryptosporidium by PCR Not detected (Not detect); Cyclospora cayetanensis PCR Not detected (Not detect); E. coli O157 by PCR Not detected (Not detect); Entamoeba histolytica PCR Not detected (Not detect); Enteroaggregative E.coli(EAEC) Not detected (Not detect); Enteropathogenic E.coli(EPEC) Not detected (Not detect); Enterotoxigenic E.coli (ETEC) Not detected (Not detect); Giardia lamblia PCR Not detected (Not detect); Norovirus GI/GII PCR Not detected (Not detect); Plesiomonas shigelloides PCR Not detected (Not detect); Rotavirus A PCR Not detected (Not detect); Salmonella PCR Not detected (Not detect); Sapovirus PCR Not detected (Not detect); Shig/EnteroinvasiveE coli EIEC Not detected (Not detect); Shigalike tox-prod E coli STEC Not detected (Not detect); Vibrio PCR Not detected (Not detect); Vibrio cholerae PCR Not detected (Not detect); Yersinia enterocolitica PCR Not detected (Not detect)
[2017-08-27] MEDS: *HR* Heparin 5,000 UNIT/ML VIAL SQ SCH ×2 (05:46→17:00)
[2017-08-27 07:21] LABS: Calcium 8.8 mg/dL (8.6-10.3); Potassium 3.9 mEq/L (3.5-5.1)
[2017-08-27 07:22] LABS: Basophils # 0.1 K/mcL (0.0-0.2); Basophils % 0.5 %; Eosinophils # 3.8 K/mcL (0.0-0.6); Eosinophils % 21.4 %; Hematocrit 32.8 % (37.5-50.1); Hemoglobin 11.1 g/dL (12.9-16.9); Immature Granulocytes % 4.6 % (0-4); Lymphocytes # 2.2 K/mcL (0.6-4.6); Lymphocytes % 12.5 %; Mean Corpuscular HGB Conc 33.8 g/dL (31.6-35.5); Mean Corpuscular Hemoglobin 29.6 pg (28.0-33.3); Mean Corpuscular Volume 87.5 fL (83.0-100.0); Monocytes # 1.4 K/mcL (0.0-1.3); Monocytes % 7.9 %; Platelet Count 238 K/mcL (140-400); Red Blood Count 3.75 M/mcL (4.19-5.50); Segmented Neutrophils % 53.1 %
--- NOTE | 2017-08-27 08:05 | Event Note ---
Date of Encounter: 08/27/17 Time of Encounter: 08:04 The patient's renal function continues to improve and is close to his baseline. Nephrology will sign off. Please call again if needed.
[2017-08-27 08:06] LABS: Neutrophils # 9.4 K/mcL (1.6-8.9)
[2017-08-27] MEDS: cloNIDine HCl 0.1 MG TABLET PO SCH ×2 (08:06→21:45)
[2017-08-27] MEDS: ALPRAZolam 1 MG TABLET PO SCH ×3 (08:06→21:45)
[2017-08-27] MEDS: Baclofen 10 MG TABLET PO SCH ×3 (08:06→23:06)
[2017-08-27 08:07] LABS: Platelet Estimate Normal (Normal)
[2017-08-27] MEDS: Metoprolol XL (24 HR) Succ 50 MG TAB.ER.24H PO SCH (08:07)
[2017-08-27] MEDS: Lactobacillus 1 EACH CAP.SPRINK PO SCH ×2 (08:07→21:45)
[2017-08-27] MEDS: Pantoprazole 40 MG VIAL IVP SCH (08:07)
[2017-08-27] MEDS: Azithromycin 500 MG in D5% in Water 250 ML IVPB SCH (08:16)
[2017-08-27] MEDS: cefTRIAXone 2,000 MG in Water for inj. (sterile) 20 ML 20 ML IVP SCH (08:16)
[2017-08-27] MEDS ORDERED: (Fluticasone/Vilanterol [Breo Ellipta 200-25 Mcg Inh] IH SCH (09:00)
[2017-08-27] MEDS: *HR* HYDROcodone/Acet 5/325 mg TABLET PO PRN ×2 (10:06→21:54)
[2017-08-27] MEDS: 0.9 % Sodium Chloride 1,000 ML IVC SCH (10:58)
[2017-08-27] MEDS: Insulin LISPRO 300 UNITS/3 ML VIAL SQ SCH ×4 (11:00→21:49)
[2017-08-27] MEDS: Budesonide/Formoterol 80/4.5 MDI IH SCH ×2 (11:30→20:27)
--- NOTE | 2017-08-27 17:53 | Internal Med Progress Note ---
Date of Encounter: 08/27/17 Time of Encounter: 17:50 - Assessment and plan (1) BARNEY (acute kidney injury) Current Visit: Yes Status: Acute Assessment and plan: Improving creatinine level. Most likely prerenal due to volume loss secondary to an acute gastroenteritis and also being on diuretic. Start IV fluid as patient is tolerating oral diet. Continue to hold diuretic and KE inhibitor for now. Avoid nephrotoxic drug. Payroll Specialist signed off now. Review of the renal ultrasound result as ordered by trademark attorney and no further recommendation (2) Acute gastroenteritis Current Visit: Yes Status: Acute Assessment and plan: Improved now. Tolerating regular diet. Continue PPI and lactobacillus (3) Pneumonia Current Visit: Yes Status: Acute Assessment and plan: Review of the chest x-ray and concern bibasilar opacity possibility of atelectasis versus pneumonia. As patient has leukocytosis with abnormal chest x -ray therefore treated as pneumonia and started Rocephin and Zithromax. As patient is improving significantly therefore give Rocephin IV while in the hospital in than will discharge Zithromax . Qualifiers: Pneumonia type: due to unspecified organism Laterality: right Lung location: middle lobe of lung Qualified Code(s): J18.1 - Lobar pneumonia, unspecified organism (4) HTN (hypertension) Current Visit: Yes Status: Acute Assessment and plan: hold lisinopril and diuretic. Will resume as per trademark attorney's advice. BP fairly well controlled. Continue clonidine . Hydralazine as needed. Qualifiers: Hypertension type: essential hypertension Qualified Code(s): I10 - Essential (primary) hypertension (5) Depression Current Visit: Yes Status: Acute Assessment and plan: continue medicine. Is stable. Qualifiers: Qualified Code(s): F32.9 - Major depressive disorder, single episode, unspecified (6) MARGA (obstructive sleep apnea) Current Visit: Yes Status: Acute Assessment and plan: CPAP to be continued (7) DMII (diabetes mellitus, type 2) Current Visit: Yes Status: Acute Assessment and plan: Accu-Chek, SSI coverage and hold metformin for now but will resume this week after discussing with PCP Qualifiers: Diabetes mellitus senior care insulin use: without senior care use Diabetes mellitus complication status: without complication Qualified Code(s): E11.9 - Type 2 diabetes mellitus without complications - Time Spent With Patient Total time spent is greater than 50% in coordination of care (as documented) at patient's floor/unit and/or counseling patient: - Subjective Interval history: Slowing down diarrhea and now he has semi-formed stool. Denies nausea vomiting and abdominal pain also better. Making good urine output but is still yellowish color. Tolerating oral diet. Making good urine output and lightening up. Patient denies dizziness, headache, vomiting, chest pain, shortness of breath - Constitutional Vitals: Temp Pulse Resp BP Pulse Ox 98.6 F 78 17 141/88 97 08/27/17 15:32 08/27/17 15:32 08/27/17 15:32 08/27/17 15:32 08/27/17 15:32 Exam: General appearance: No acute distress, A&O X 3 Head exam: Atraumatic Eye exam: EOMI, PERRLA ENT exam: Moist oral mucosa Neck nontender, supple Respiratory exam: Clear to auscultation bilaterally Cardiovascular exam: Regular rate and rhythm, no systolic murmur Abdominal exam: Soft, nontender, nondistended, positive bowel sounds Extremities exam: No calf tenderness, no pedal edema Present: Skin-no rash, warm, dry, intact Neurological exam: Alert, awake, oriented 3, CN II-XII intact, no focal deficits. No facial droop. Normal speech. Normal gait. Romberg sign negative Internal Medicine: Result - Labs CBC & Chem 7: 08/27/17 06:43 08/27/17 06:43 Labs: Short CBC 08/27/17 Range/Units 06:43 WBC 17.6 H (4.3-11.1) K/mcL Hgb 11.1 L (12.9-16.9) g/dL Hct 32.8 L (37.5-50.1) % Plt Count 238 (140-400) K/mcL Neutrophils # 9.4 H (1.6-8.9) K/mcL BMP 08/27/17 06:43 Sodium 141 Potassium 3.9 Chloride 110 H Carbon Dioxide 22 L BUN 21 H Creatinine 1.69 H Glucose 114 H Calcium 8.8 Consult Discharge Plan - Plan Referrals: Alcon Weber MD [Primary Care Provider] -
[2017-08-27] MEDS: risperiDONE 1 MG TABLET PO SCH (21:46)
[2017-08-28] MEDS: *HR* Heparin 5,000 UNIT/ML VIAL SQ SCH (05:14)
[2017-08-28 05:35] LABS: Basophils # 0.1 K/mcL (0.0-0.2); Basophils % 0.4 %; Eosinophils # 5.4 K/mcL (0.0-0.6); Eosinophils % 31.2 %; Hematocrit 30.8 % (37.5-50.1); Hemoglobin 10.7 g/dL (12.9-16.9); Immature Granulocytes % 4.7 % (0-4); Immature Platelets 2.6 % (1.1-6.1); Lymphocytes # 2.4 K/mcL (0.6-4.6); Lymphocytes % 13.8 %; Mean Corpuscular HGB Conc 34.7 g/dL (31.6-35.5); Mean Corpuscular Hemoglobin 30.1 pg (28.0-33.3); Mean Corpuscular Volume 86.5 fL (83.0-100.0); Mean Platelet Volume 9.7 fL (9.4-12.4); Monocytes # 1.3 K/mcL (0.0-1.3); Monocytes % 7.3 %; Neutrophils # 7.4 K/mcL (1.6-8.9); Platelet Count 231 K/mcL (140-400); Red Blood Count 3.56 M/mcL (4.19-5.50); Red Cell Distribution Width 13.7 % (11.5-14.5); Segmented Neutrophils % 42.6 %
[2017-08-28 05:49] LABS: BUN/Creatinine Ratio 10 (6-26); Blood Urea Nitrogen 12 mg/dL (6-20); Calcium 8.6 mg/dL (8.6-10.3); Carbon Dioxide 23 mEq/L (23-29); Chloride 109 mEq/L (98-107); Glucose 111 mg/dL (70-105); Osmolality,Calculated 292 (280-300); Potassium 3.6 mEq/L (3.5-5.1); Sodium 141 mEq/L (136-145); eGFR For African Americans > 60 (> 60); eGFR For Non-African Americans > 60 (> 60)
[2017-08-28 06:03] LABS: Anisocytosis 1+ (Not Present); Platelet Estimate Normal (Normal)
[2017-08-28 06:58] VITALS: BP 130/79
[2017-08-28] MEDS: Budesonide/Formoterol 80/4.5 MDI IH SCH (07:52)
[2017-08-28] MEDS: cloNIDine HCl 0.1 MG TABLET PO SCH (07:59)
[2017-08-28] MEDS: Insulin LISPRO 300 UNITS/3 ML VIAL SQ SCH (07:59)
[2017-08-28] MEDS: Baclofen 10 MG TABLET PO SCH (07:59)
[2017-08-28] MEDS: Metoprolol XL (24 HR) Succ 50 MG TAB.ER.24H PO SCH (08:00)
[2017-08-28] MEDS: ALPRAZolam 1 MG TABLET PO SCH (08:00)
[2017-08-28] MEDS: Pantoprazole 40 MG VIAL IVP SCH (08:00)
[2017-08-28] MEDS: Lactobacillus 1 EACH CAP.SPRINK PO SCH (08:00)
[2017-08-28] MEDS: cefTRIAXone 2,000 MG in Water for inj. (sterile) 20 ML 20 ML IVP SCH (08:09)
[2017-08-28] MEDS: Azithromycin 500 MG in D5% in Water 250 ML IVPB SCH (08:10)
--- NOTE | 2017-08-28 09:08 | Discharge Summary ---
- NOTES TO OUTPATIENT PROVIDER Notes to Outpatient Provider: Follow-up with PCP within 3-5 days. Monitor blood glucose level. Continue glimepiride but resumed metformin once cleared by PCP. Resume diuretics and titrating up KE inhibitor once cleared by PCP. Resume Lasix immediately if any concern of volume overload and discuss with PCP. Orders not resulted at time of discharge: Pending orders 08/26/17 11:14 Immunoelectrophoresis Routine 08/26/17 16:14 Bedside Spirometry Evaluation [EVAL] Routine 08/27/17 04:45 Immunofixation,Urine (BJP) Routine Date of Encounter: 08/28/17 Time of Encounter: 09:08 - Discharge Diagnosis (1) BARNEY (acute kidney injury) Priority: Primary Status: Acute Assessment and Plan: Improving creatinine level and back to baseline. Most likely prerenal due to volume loss secondary to an acute gastroenteritis and also being on diuretic. Tolerating oral diet with good urine output. Will discharge patient on very low -dose KE inhibitor 10 mg but continue to hold diuretics and will be resumed and further adjustment in blood pressure medicine by PCP. Close monitoring of BP with the help of PCP. Secretary was consulted who signed off and not recommended further follow-up with him at this time. Review of the renal ultrasound result as ordered by social organization professor and no further recommendation (2) Acute gastroenteritis Priority: Primary Status: Acute Assessment and Plan: Resolved. Tolerating regular diet. (3) Pneumonia Priority: Primary Status: Acute Assessment and Plan: Review of the chest x-ray and concern bibasilar opacity possibility of atelectasis versus pneumonia. As patient has leukocytosis with abnormal chest x -ray therefore treated as pneumonia . Trending down white count but is still elevated therefore will discharge patient on Levaquin 750 mg daily for 3 days and follow-up with PCP. Levaquin will help in both pneumonia and GI related symptoms Qualifiers: Pneumonia type: due to unspecified organism Laterality: right Lung location: middle lobe of lung Qualified Code(s): J18.1 - Lobar pneumonia, unspecified organism (4) HTN (hypertension) Priority: Secondary Status: Acute Assessment and Plan: Well-controlled blood pressure while holding KE inhibitor and diuretics. Will resume low-dose of lisinopril 10 mg daily and resume diuretic in further adjustment in antihypertensive medicine as per PCP otherwise. Qualifiers: Hypertension type: essential hypertension Qualified Code(s): I10 - Essential (primary) hypertension Code(s): I10 - Essential (primary) hypertension SNOMED Code(s): 85086513 (5) Depression Priority: Secondary Status: Acute Assessment and Plan: continue medicine. Is stable. Qualifiers: Depression Type: unspecified Qualified Code(s): F32.9 - Major depressive disorder, single episode, unspecified (6) MARGA (obstructive sleep apnea) Priority: Secondary Status: Acute Assessment and Plan: CPAP to be continued (7) DMII (diabetes mellitus, type 2) Priority: Secondary Status: Acute Assessment and Plan: Hold metformin this week and resume as per PCP advice. Blood glucose has been very well controlled during his stay. On discharge glimepiride 1 mg by mouth daily started. Check blood glucose level and discuss with PCP for further medication management. Qualifiers: Diabetes mellitus terminal operator insulin use: without longterm use Diabetes mellitus complication status: without complication Qualified Code(s): E11.9 - Type 2 diabetes mellitus without complications Hospital course: Mr. Christina is a 47 year old male got admitted for acute gastroenteritis, acute kidney injury and possible pneumonia with leukocytosis. His creatinine level back to normal S line. Please see assessment and plan for details Discharge discussed with: patient, family, nurse - Time Spent with Patient Total time spent providing and/or coordinating discharge services: - Discharge Medications Prescriptions: Glimepiride [Amaryl] 1 mg PO DAILY #30 tablet Levofloxacin [Levaquin] 750 mg PO DAILY #3 tablet Lisinopril [Zestril] 10 mg PO DAILY #30 tablet Home Medications: ALPRAZolam [Xanax 1 MG Tablet] 1 mg PO TID 08/26/17 [History] Atorvastatin Calcium [Lipitor] 20 mg PO HS 08/26/17 [History] Baclofen [Lioresal] 10 mg PO Q8H 08/26/17 [History] Fluticasone/Vilanterol [Breo Ellipta 200-25 Mcg INH] 1 puff IH DAILY 08/26/17 [ History] Gabapentin [Neurontin] 600 mg PO TID 08/26/17 [History] HYDROcodone/Acet 5/325 mg [[place] 5-325 mg] 1 tab PO BID PRN 08/26/17 [History] Metoprolol Succinate [Toprol Xl] 100 mg PO DAILY 08/26/17 [History] Omeprazole [PriLOSEC] 20 mg PO DAILY 08/26/17 [History] Zolpidem [Ambien] 10 mg PO HS 08/26/17 [History] cloNIDine HCl [Clonidine HCl] 0.2 mg PO BID 08/26/17 [History] fluvoxaMINE [Luvox] 100 mg PO TID 08/26/17 [History] risperiDONE [Risperdal] 2 mg PO HS 08/26/17 [History] traZODone [TraZODone] 50 mg PO TID 08/26/17 [History] Glimepiride [Amaryl] 1 mg PO DAILY #30 tablet 08/28/17 [Rx] Levofloxacin [Levaquin] 750 mg PO DAILY #3 tablet 08/28/17 [Rx] Lisinopril [Zestril] 10 mg PO DAILY #30 tablet 08/28/17 [Rx] Allergies/Adverse Reactions: 3 Allergy/AdvReac Type Severity Reaction Status Date / Time No Known Allergies Allergy Verified 08/25/17 16:33 Date of admission: 08/25/17 19:12 Primary care physician: Alcon Weber MD - Constitutional Vitals: Temp Pulse Resp BP Pulse Ox 98.1 F 66 17 130/79 93 08/28/17 06:56 08/28/17 06:56 08/28/17 06:56 08/28/17 06:56 08/28/17 06:56 Exam: General appearance: No acute distress, A&O X 3, obese Head exam: Atraumatic Eye exam: EOMI, PERRLA ENT exam: Moist oral mucosa Neck nontender, supple Respiratory exam: Clear to auscultation bilaterally Cardiovascular exam: Regular rate and rhythm, no systolic murmur Abdominal exam: Soft, nontender, nondistended, positive bowel sounds Extremities exam: No calf tenderness, no pedal edema Present: Skin-no rash, warm, dry, intact Neurological exam: Alert, awake, oriented 3, CN II-XII intact, no focal deficits. No facial droop. Normal speech. Normal gait. - Patient Status Disposition: Home, Self-Care Condition: Good Overall status at discharge: patient is back to baseline - Discharge Instructions Follow Up With: Alcon Weber MD [Primary Care Provider] - - Diet and Activity Activity: increase activity as tolerated Diet: diabetic diet, low fat, low cholesterol, low salt diet
[2017-08-28 10:17] LABS: Mycoplasma pneumoniae IgG 0.38 U/L (<=0.09)
[2017-08-29] MEDS ORDERED: *HR* Glimepiride 2 MG TABLET PO SCH (08:00)
[2017-08-29 10:44] LABS: Alpha 2 Globulin (PEP) 0.84 g/dL (0.48-1.05); Beta Globulin (PEP) 0.76 g/dL (0.48-1.10)
[2017-08-29 13:11] LABS: IFE Reflexed NOT DONE
[2017-08-29 14:19] LABS: Urine Collection Duration RANDOM hr; Urine Collection Volume RANDOM mL
== END 2017-08-28 10:32 | disposition home or self-care (01) | DRG 871 ==
LOC: 2ANU 15:55 → EMEROO 15:55 → SUATTDRO 19:12 → 2ANU 19:12
PROVIDERS: ADMIT Family Medicine; ATTEND General Practice